=== PATIENT | female | born 1975 | race Caucasian/White ===

== ENCOUNTER 2025-08-09 23:51 | Emergency (ER) | payer SELFPAY ==
[~2025-08-09] VITALS: Ht 162.6 cm; Wt 78.8 kg
[2025-08-09 23:53] VITALS: O2SAT 99
[2025-08-10] MEDS: KETOROLAC 15MG/ML VIAL IM ONE (01:09)
[2025-08-10] MEDS: LIDOCAINE 5% PATCH TOP SCH (01:53)
[2025-08-10] MEDS ORDERED: NAPR-1176 MT (02:28)
[2025-08-10] MEDS ORDERED: LIDO-53 TP (02:28)
[2025-08-10 02:45] VITALS: BP 135/78; PULSE 78; RESP 16; TEMP 36.9; O2SAT 98
== END 2025-08-10 02:49 | disposition home or self-care (01) ==
LOC: ER 23:51
DX: M25.512 Pain in left shoulder (principal); Z79.1 Long term (current) use of non-steroidal anti-inflammatories (NSAID)
CPT/HCPCS: 99285; 73030; 93971; 96372; J1885